=== PATIENT | male | born 1945 | race Caucasian/White ===

== ENCOUNTER → 2016-08-06 | Outpatient (CLI) | payer MEDICARE, BC ==
[~2016-08-06] MED LIST: ALDACTONE25 MG PO; ALLOPURINOL300 MG PO; ASPIRIN LO-DOSE81 MG PO; B-121000 MC1 PO; BIOTIN1 MG PO; COZAAR50 MG PO; CPAP INH; DESONIDE60 GM TOP; FISH OIL 1,2001 EACH PO; FISH OIL OMEGA1 EACH PO; OCUVITE EYE +1 EACH PO; VALTREX1000 MG PO; VITAMIN D-32000 UNI1 PO; ZOCOR40 MG PO
== END | disposition disaster alternative care site (69) ==
LOC: LGSMG 09:50
DX: E78.5 Hyperlipidemia, unspecified (principal); E79.0 Hyperuricemia without signs of inflammatory arthritis and tophaceous disease; E55.0 Rickets, active; E55.9 Vitamin D deficiency, unspecified; I10 Essential (primary) hypertension; R70.0 Elevated erythrocyte sedimentation rate; R73.09 Other abnormal glucose; R80.9 Proteinuria, unspecified; Z79.899 Other long term (current) drug therapy